=== PATIENT | male | born 1990 | race Caucasian/White ===

== ENCOUNTER 2020-05-06 17:02 | Emergency (ER) | payer MEDICARE, MEDICAID, SELFPAY ==
[2020-05-06 17:11] VITALS: BP 96/70; PULSE 95; RESP 18; TEMP 36.7; O2SAT 99; BMI 21.9
--- NOTE | 2020-05-06 18:03 | XR_ITS ---
EXAMINATION: XR chest 2V CLINICAL INFORMATION: Reason for Exam left chest pain s/p trauma COMPARISON: 2018 TECHNIQUE: XR chest 2V Lungs and Evelyn: Both lungs are clear. Pleura: Normal. Costophrenic angles are sharp. No pneumothorax. Heart: The heart is normal in size. Mediastinum: The mediastinum is within normal limits.. Bones: Skeletal structures included are normal for patient's age. XR/XR chest 2V IMPRESSION: Normal chest x-ray
--- NOTE | 2020-05-06 18:03 | ECG_ITS ---
Test Reason : CHEST PAIN Blood Pressure : / mmHG Vent. Rate : 086 BPM Atrial Rate : 086 BPM P-R Int : 128 ms QRS Dur : 084 ms QT Int : 360 ms P-R-T Axes : 048 085 071 degrees QTc Int : 430 ms Normal sinus rhythm with sinus arrhythmia Normal ECG No previous ECGs available Referred By: Christin Hunter Electronically Signed By:PAYTON MOCTEZUMA MD
--- NOTE | 2020-05-06 18:04 | ED_ITS ---
HPI - Chest Pain General Chief Complaint: Chest Pain Stated Complaint: chest pain Time Seen by Provider: 05/06/20 18:02 Source: patient Mode of arrival: ambulatory Limitations: no limitations History of Present Illness HPI narrative: 29-year-old male with no significant past medical history presents with 1 week of left-sided chest pain after injury. He hit himself into a metal object and since the injury has had left-sided chest pain and pain on inspiration to the left side. He does not describe any loss of consciousness, chest pressure, palpitations, shortness of breath, abdominal pain, dull distention, dysuria, hematuria, vomiting, diarrhea, constipation, edema, fevers and chills. MD complaint: chest pain Onset (ago): week(s) ( One week) Timing of current episode: constant Prior episodes: No Onset: during exertion Pain location: left chest Pain radiation: none Severity: moderate Pain scale (0-10): 7 Quality: sharp Relieving factors: nothing Exacerbating factors: exertion, inspiration, palpation and movement Context: trauma/injury Treatment prior to arrival: other ( NSAIDs) Risk Factors Coronary artery disease risk factors: none Thoracic aortic dissection risk factors: none Related Data Allergies Allergy/AdvReac Type Severity Reaction Status Date / Time No Known Allergies Allergy Verified 05/06/20 17:10 [No Known Allergies*] Review of Systems Review of Systems: Constitutional: No Weight loss, No Fever, No Chills, No Night Sweats, No Fatigue, No Malaise ENT/Mouth: No Hearing loss, No Ear Pain, No Nasal Congestion, No Sinus Pain, No Hoarseness, No sore throat, No Rhinorrhea, No Swallowing Difficulty Eyes: No Eye Pain, No Swelling, No Redness, No Foreign Body, No Discharge, No Vision Changes Cardiovascular: pos Chest Pain, no SOB, no Dyspnea on Exertion, No Orthopnea, No Edema, No Palpitations Respiratory: No Cough, No Sputum, No Wheezing, No Smoke Exposure, No Dyspnea Gastrointestinal: no Nausea, No Vomiting, No Diarrhea, No abdominal Pain, No Hematochezia, No Melena Genitourinary: No irregular bleeding, No Dysuria, No Urinary Frequency, No Hematuria, No Urinary Incontinence, No Urgency, No Flank Pain, No Urinary Flow Changes, No Hesitancy Musculoskeletal: No joint pain, No Myalgias, No Joint Swelling Skin: No Skin Lesions, No rash Neuro: No Weakness, No Numbness, No Paresthesias, No Loss of Consciousness, No Dizziness, No Headache Psych: No Anxiety/Panic, No Depression, No SI/HI/AH/VH Heme/Lymph: No Bruising, No Bleeding,No Lymphadenopathy Endocrine: No Polyuria, No Polydipsia, No Temperature Intolerance Yes all other systems are reviewed and are negative [facility] Past Medical History Attestation statement: The following information was validated with the patient. Medical History Anxiety PTSD (post-traumatic stress disorder) Social History Social History Advance Directives: No Advance Directives Information Provided: Yes Physical Exam Vital Signs: Vital Signs: Last Vital Signs Temp 98.0 F 05/06/20 17:11 Pulse 95 05/06/20 17:11 Resp 18 05/06/20 17:11 BP 96/70 05/06/20 17:11 Pulse Ox 99 05/06/20 17:11 Body Mass Index 21.9 Appearance: Alert. Oriented X3. No acute distress. Eyes: Pupils equal, round and reactive to light. ENT: Pharynx normal. Neck: Normal inspection. Neck supple. CVS: Normal heart rate and rhythm. Pulses normal. Respiratory: No respiratory distress. chest tenderness to palpation on left side, pain to left side on sternal pressure, lung sounds clear to auscultation all lobes. Abdomen: Soft and nontender. Skin: Skin warm and dry. Normal skin color. Normal skin turgor. Extremities: No lower extremity edema. Neuro: No motor deficit. No sensory deficit. Course Course Course Narrative: 29-year-old male with significant past medical history presents with left-sided chest pain after trauma. Plan of care is to rule out fracture, ACS And infection. EKG is normal sinus, troponins are negative, labs are unremarkable, chest x-ray is normal. This injury is highly suspicious for rib fracture or contusion Highly unlikely to be ACS, findings described to patient, patient verbalized understanding of and agrees to plan of care discharge home. MDM - Chest Pain Differential Diagnosis Differential diagnosis: Likely fracture of rib, pneumothorax, stable angina, unstable angina pectoris, atypical chest pain, st elevation myocardial infarction, costochondritis and chest pain Medical Records Data Attestation: I reviewed the patient's medical records. Lab Data Attestation: I reviewed the patient's lab results. Result diagrams: 05/06/20 18:28 05/06/20 18: Labs: Lab Results 05/06/20 05/06/20 05/06/20 Range/Units 18: 18: 18:28 WBC 10.0 (4.8-10.8) X10*3/uL RBC 4.66 (4.60-5.80) X10*6/uL Hgb 13.5 L (14.0-18.0) g/dl Hct 39.7 L (42-52) % MCV 85.2 (80-98) fL MCH 29.0 (27.0-33.0) pg MCHC 34.0 (31.0-36.0) g/dl RDW 13.4 (11.0-16.0) % Plt Count 246 (160-400) X10*3/uL MPV 9.3 L (9.4-12.4) fL Immature Gran % (Auto) 0.3 (0.0-0.4) % Neut % (Auto) 58.4 (45-73) % Lymph % (Auto) 30.9 (20-40) % [place] % (Auto) 7.7 (2-11) % Eos % (Auto) 2.0 (0-4) % Baso % (Auto) 0.7 (0-2) % Lymph # (Auto) 3.1 (1.2-4.9) X10*3/uL [place] # (Auto) 0.8 (0.1-1.2) X10*3/uL Eos # (Auto) 0.2 (0.0-0.4) X10*3/uL Baso # (Auto) 0.1 (0.0-0.2) X10*3/uL Abs Immat Gran (auto) 0.03 (0.00-0.03) X10*3/uL Absolute Neuts (auto) 5.8 (2.0-8.3) X10*3/uL Absolute Nucleated RBC 0.000 (0.0-0.012) X10*3/uL Nucleated RBC % (auto) 0.0 (0.0-0.2) /100WBC Sodium 142 (135-145) mmol/L Potassium 3.8 (3.3-5.1) mmol/l Chloride 106 (96-108) mmol/L Carbon Dioxide 27 (22-29) mmol/L Anion Gap 13 (12-20) BUN 15 (9-16) mg/dL Creatinine 0.83 (0.5-1.4) mg/dL Estim Creat Clear Calc 115.8 Estimated GFR > 60 Random Glucose 86 (60-115) mg/dL Calcium 8.9 (8.4-10.2) mg/dL Troponin I High Sens < 3.5 (<3.5-35.0) ng/L Imaging Data Chest x-ray: Attestation: I personally reviewed and interpreted this imaging study as follows: Radiologist's impression: EXAMINATION: XR chest 2V CLINICAL INFORMATION: Reason for Exam left chest pain s/p trauma COMPARISON: 2017 TECHNIQUE: XR chest 2V Lungs and Evelyn: Both lungs are clear. Pleura: Normal. Costophrenic angles are sharp. No pneumothorax. Heart: The heart is normal in size. Mediastinum: The mediastinum is within normal limits.. Bones: Skeletal structures included are normal for patient's age. XR/XR chest 2V IMPRESSION: Normal chest x-ray ECG Data ECG #1: Attestation: I personally reviewed and interpreted this ECG as follows: ECG interpretation date: 05/06/20 ECG interpretation time: 18:15 Prior ECG tracings: not available for review Interpretation: ventricular rate 86 beats per minute, p.r. interval 128, QT 360, QTC 430, normal sinus rhythm with sinus arrhythmia, normal EKG, no indication of ST elevation or depression. Prior EKGs unavailable secondary to s ystem failure. Scores Heart Score History: -0- slightly suspicious ECG: -0- normal Age: -0- < or = 45 Risk factory: -0- no risk factors known Troponin: -0- < or = normal limit Score: 0 Risk: 1.7% Discharge Plan Discharge Clinical Impression: Atypical chest pain Fracture of rib Qualifiers: Encounter type: initial encounter Rib fracture type: single rib Fracture type: closed Laterality: left Qualified Code(s): S22.32XA - Fracture of one rib, left side, initial encounter for closed fracture Contusion of rib on left side Qualifiers: Encounter type: initial encounter Qualified Code(s): S20.212A - Contusion of left front wall of thorax, initial encounter Patient Disposition: Home, Self-Care Instructions: Rib Fracture (ED), Rib Contusion (ED) Additional Instructions: you were evaluated for left-sided chest pain after an injury. While the chest x-ray is negative for acute findings, it is highly suspicious that you have a rib fracture. Rib fractures are very difficult to see with x-rays and CT scan. Please continue to take naproxen and Tylenol. EKG was normal sinus rhythm, your cardiac enzymes were negative, lab values were negative for acute findings. Follow-up with primary care provider this week. Interventions: ED Discharge Assessment Last Done: 05/06/20 20:12 Discharge Date/Time: 05/06/20 20:13
[2020-05-06 18:35] LABS: MANUAL DIFF FLAG NO
[2020-05-06 18:37] LABS: Basophils Absolute Auto 0.1 X10*3/uL (0.0-0.2); Basophils Percent Auto 0.7 % (0-2); Eosinophils Absolute Auto 0.2 X10*3/uL (0.0-0.4); Hematocrit 39.7 % (42-52); Hemoglobin 13.5 g/dl (14.0-18.0); Imm Gran Abs Auto 0.03 X10*3/uL (0.00-0.03); Imm Gran Pct Auto 0.3 % (0.0-0.4); Lymphocytes Absolute Auto 3.1 X10*3/uL (1.2-4.9); Lymphocytes Percent Auto 30.9 % (20-40); Mean Corpuscular Volume 85.2 fL (80-98); Mean Platelet Volume 9.3 fL (9.4-12.4); Monocytes Absolute Auto 0.8 X10*3/uL (0.1-1.2); Monocytes Percent Auto 7.7 % (2-11); Neutrophils Absolute Auto 5.8 X10*3/uL (2.0-8.3); Neutrophils Percent Auto 58.4 % (45-73); Platelet Count 246 X10*3/uL (160-400); Red Blood Count 4.66 X10*6/uL (4.60-5.80); Red Cell Distribution Width 13.4 % (11.0-16.0)
[2020-05-06 19:06] LABS: Anion Gap 13 (12-20); Blood Urea Nitrogen 15 mg/dL (9-16); Calcium 8.9 mg/dL (8.4-10.2); Carbon Dioxide 27 mmol/L (22-29); Chloride 106 mmol/L (96-108); Creatinine Clr Calc Pharmacy 115.8; Estimated Glomerular Filt Rate > 60; Glucose Random 86 mg/dL (60-115); Potassium 3.8 mmol/l (3.3-5.1); Sodium 142 mmol/L (135-145)
[2020-05-06 19:13] LABS: Troponin-I High Sensitivity < 3.5 ng/L (<3.5-35.0)
== END 2020-05-06 20:13 | disposition home or self-care (01) ==
PROVIDERS: Nurse Practitioner Family; Emergency Provider Emergency Medicine; PCP Internal Medicine
DX: S22.32XA Fracture of one rib, left side, initial encounter for closed fracture (principal); S20.212A Contusion of left front wall of thorax, initial encounter; R07.89 Other chest pain; Y29.XXXA Contact with blunt object, undetermined intent, initial encounter; Y93.9 Activity, unspecified; Y92.9 Unspecified place or not applicable; Y99.9 Unspecified external cause status
CPT/HCPCS: 36415; 71046; 80048; 84484; 85025; 93005; 99283

== ENCOUNTER 2020-09-18 11:54 | Outpatient (REF) | payer OTHER, SELFPAY ==
[2020-09-18 14:15] LABS: Estimated Average Glucose 105 mg/dL; Hemoglobin A1c % 5.3 %
[2020-09-18 14:46] LABS: Cholesterol 180 mg/dL; HDL Cholesterol 42 mg/dL; LDL Cholesterol Calculated 120 mg/dl; Triglycerides 90 mg/dL
== END 2020-09-18 11:55 | disposition home or self-care (01) ==
LOC: HO.10HDL 11:54
PROVIDERS: Visit Provider Psychiatry & Neurology Psychiatry
DX: Z79.899 Other long term (current) drug therapy (principal)
CPT/HCPCS: 36415; 80061; 83036

== ENCOUNTER 2021-06-01 17:10 | Emergency (ER) | payer OTHER, SELFPAY ==
[2021-06-01 17:12] VITALS: BP 117/78; PULSE 106; RESP 16; TEMP 36.8; O2SAT 98; BMI 21.9
--- NOTE | 2021-06-01 17:33 | ED.SKABFB ---
HPI - Skin/Abscess/Foreign Bdy General Chief complaint: Skin/Abscess/Foreign Body Stated complaint: lump on side of neck Time Seen by Provider: 06/01/21 17:19 Source: patient Mode of arrival: ambulatory Limitations: no limitations History of Present Illness HPI narrative: 31-year-old male here with lump to the right side the neck noticed today. No fevers, chills, sore throat, dental pain, ear pain, recent illnesses. No weight loss, night sweats Related Data Previous Rx's Medication Instructions Recorded amoxicillin 500 mg tablet 500 mg PO BID #14 tab 06/01/21 Allergies Allergy/AdvReac Type Severity Reaction Status Date / Time No Known Allergies Allergy Verified 05/06/20 17:10 [No Known Allergies*] Review of Systems Review of Systems: Yes all other systems are reviewed and are negative Constitutional: Constitutional: Reports no additional constitutional complaints, Denies body ache(s), Denies chills, Denies fever(s), Denies headache(s) and Denies weakness Eyes: Eyes: Reports no additional eye complaints and Denies change in vision ENT: Reports system reviewed and no additional complaints, except as documented, Denies dizziness, Denies headache(s), Denies nasal congestion, Denies nasal discharge and Denies neck pain Cardiovascular: Cardiovascular: Reports no additional cardiovascular complaints, Denies chest pain, Denies leg edema and Denies dyspnea Respiratory: Respiratory: Reports no additional respiratory complaints, Denies cough and Denies dyspnea Gastrointestinal: Gastrointestinal: Reports no additional gastrointestinal complaints, Denies abdominal pain, Denies diarrhea, Denies nausea and Denies vomiting Genitourinary: Genitourinary: Denies urinary incontinence Musculoskeletal: Musculoskeletal: Reports no additional musculoskeletal complaints, Denies back pain, Denies arthralgias, Denies joint swelling, Denies neck pain, Denies numbness and Denies tingling Integumentary/Breasts: Skin/Breast: Reports system reviewed and no additional complaints, except as docu, Reports swelling and Denies rash Neurologic: Reports system reviewed and no additional complaints, except as documented, Denies Abnormal speech present, Denies dizziness, Denies headache(s), Denies numbness, Denies tingling and Denies weakness PMF Past Medical History Attestation statement: The following information was validated with the patient. Source: old records reviewed and nursing notes reviewed Medical History Anxiety PTSD (post-traumatic stress disorder) Social History Social History Advance Directives: No Advance Directives Information Provided: Yes Physical Exam Vital Signs: Vital Signs: Last Vital Signs Temp 98.2 F 06/01/21 17:12 Pulse 106 H 06/01/21 17:12 Resp 16 06/01/21 17:12 BP 117/78 06/01/21 17:12 Pulse Ox 98 06/01/21 17:12 BMI result Body Mass Index 21.9 Const: General: cooperative, healthy appearing, comfortable and no acute distress Orientation/consciousness: patient oriented x3 Limitations: no limitations HENMT: Head: Yes normal to inspection Ears: hearing grossly normal bilaterally and TM's normal bilaterally General nose exam: Normal external nose present Face and sinus: Yes normal facial exam Mouth: Normal oral and palatal mucosa present Throat: Yes posterior oropharynx normal, Yes tonsils normal and Yes uvula midline Eyes: General: appearance normal, both eyes and all related structures Pupils: Equal, round and reactive pupils present Neck: Other: To the right side of the neck there is a single lymph node medium size that is tender and mobile to the anterior cervical Neck: Yes normal visual inspection, Yes full ROM and Yes no meningeal signs Chest: Chest palpation & inspection: normal inspection of the chest Resp: Effort & Inspection: normal respiratory effort Auscultation: clear to auscultation bilaterally Cardio: Rate: regular rate Rhythm: regular rhythm Peripheral pulses: Peripheral pulses 2+ throughout GI: Inspection: Yes normal to inspection Palpation (GI): Soft to palpation and nontender Auscultation: normal bowel sounds Back/Spine/Pelvis: Thoracic/Lumbar Spine: thoracic and lumbar spine normal to inspection Skin: General skin exam: no rashes or lesions noted Neuro: General: patient oriented x3, no meningeal signs, no focal motor deficits and normal sensation to monofilament Cranial nerves: Yes Equal, round and reactive pupils present Cognition (Neuro): normal cognition Speech: No Abnormal speech present Gait exam (Neuro): Normal gait present Motor exam (neuro): 5/5 motor strength present throughout Extrem: General: Yes normal to inspection Course Course Course Narrative: 31-year-old male here with right anterior cervical lymphadenopathy from an unknown cause. Exam is benign. Vitals are stable. Will treat with course of antibiotics. Recommend patient follow-up with his primary care doctor in 1 week for persistent symptoms as he may need a lymph node biopsy. Reviewed worrisome signs and symptoms of when to return to the emergency department. Comfortable discharge home. MDM - Skin/Abscess/Foreign Bdy Medical Records Attestation: I reviewed the patient's medical records. Lab Data Attestation: I reviewed the patient's lab results. Discharge Plan Discharge Clinical Impression: Lymphadenopathy of right cervical region Patient Disposition: Home, Self-Care Instructions: Lymphadenopathy (ED) Additional Instructions: Antibiotics for 7 days. If no improvement after that then see the PCP for an evaluation. If continues you may need a biopsy. Prescriptions: New amoxicillin 500 mg tablet 500 mg PO BID Qty: 14 RF: 0 Referrals: Tanya Mora MD [Primary Care Provider] - 2 days
== END 2021-06-01 18:22 | disposition home or self-care (01) ==
LOC: HO.ED 17:47
PROVIDERS: Emergency Provider Emergency Medicine; PCP Internal Medicine
DX: R59.1 Generalized enlarged lymph nodes (principal)
CPT/HCPCS: 99283

== ENCOUNTER 2021-09-11 13:42 | Outpatient (REF) | payer OTHER, SELFPAY ==
[2021-09-11 15:09] LABS: Estimated Average Glucose 108 mg/dL; Hemoglobin A1c % 5.4 %
[2021-09-11 15:19] LABS: Cholesterol 183 mg/dL; HDL Cholesterol 40 mg/dL; LDL Cholesterol Calculated 131 mg/dl; Triglycerides 62 mg/dL
== END 2021-09-11 13:43 | disposition home or self-care (01) ==
LOC: HO.LAB 13:42
PROVIDERS: PCP Internal Medicine; Visit Provider Psychiatry & Neurology Psychiatry
DX: Z79.899 Other long term (current) drug therapy (principal)
CPT/HCPCS: 36415; 80061; 83036

== ENCOUNTER 2022-01-15 11:14 | Outpatient (REF) | payer OTHER, SELFPAY ==
[2022-01-15 13:17] LABS: Hematocrit 42.4 % (42.0-52.0); Hemoglobin 14.1 g/dl (14.0-18.0); Mean Corpuscular HGB Conc 33.3 g/dl (31.0-36.0); Mean Corpuscular Hemoglobin 28.4 pg (27.0-33.0); Mean Corpuscular Volume 85.5 fL (80.0-98.0); Mean Platelet Volume 9.9 fL (9.4-12.4); Platelet Count 273 X10*3/uL (160-400); Red Blood Count 4.96 X10*6/uL (4.60-5.80); Red Cell Distribution Width 13.8 % (11.0-16.0); White Blood Count 8.4 X10*3/uL (4.8-10.8)
[2022-01-15 13:31] LABS: Alanine Aminotransferase 16 U/L (0-40); Albumin Level 4.5 g/dL (3.5-5.0); Alkaline Phosphatase 63 U/L (39-117); Anion Gap 16 (12-20); Aspartate Amino Transferase 25 U/L (5-37); Bilirubin Total 0.4 mg/dL (0.0-1.0); Blood Urea Nitrogen 16 mg/dL (9-16); Calcium 9.2 mg/dL (8.4-10.2); Carbon Dioxide 27 mmol/L (22-29); Chloride 101 mmol/L (96-108); Estimated Glomerular Filt Rate > 60; Glucose Fasting 91 mg/dL (60-99); Potassium 3.9 mmol/L (3.3-5.1); Sodium 140 mmol/L (135-145); Total Protein 7.1 g/dL (6.5-8.0)
[2022-01-15 13:51] LABS: TSH reflex Free T4 1.35 uIU/mL (0.32-4.0)
== END 2022-01-15 11:15 | disposition home or self-care (01) ==
LOC: HO.WFDLDS 11:14
PROVIDERS: Visit Provider Hospitalist
DX: Z00.00 Encounter for general adult medical examination without abnormal findings (principal)
CPT/HCPCS: 36415; 80053; 84443; 85027

== ENCOUNTER 2023-08-12 12:08 | Outpatient (AMB) | payer OTHER, SELFPAY ==
--- NOTE | 2023-08-12 12:22 | MHC.PC.OV ---
Vital Signs 08/12/23 12:23 Height 5 ft 9 in Weight 189 lb BMI 27.9 BP 106/65 Blood Pressure Location Rt brachial Position Sitting Respiration 14 Pulse 75 Pulse Source Pulse Oximeter Temp 97.0 F Pulse Oximetry (%) 97 Oxygen Delivery Method Room Air Intake Visit Reasons: TC SV/Annual PE Intake Note: Patient is here today for a physical. Patient reports he does not have any concerns at this time. Senior Quality Methods Specialist Required: No Accompanied by: Self / Same As Patient Allergies No Known Allergies [No Known Allergies*] Allergy (Verified 08/12/23 12:42) Medication List - Last Reconciled 08/12/23 by JOSESITO Valenzuela-MARLYN quetiapine (Seroquel) 50 mg PO BEDTIME Tobacco use date assessed: 08/12/23 Dental Screening Dental Screen Date: 08/12/23 Did you have a dental visit in the last 12 months?: Yes Did you have a dental problem in the last 6 months where you did not have access to dental care?: No Was dental information given to patient?: Patient has dentist HPI HPI Comments History of Present Illness Details 33-year-old male with PTSD, anxiety, delusional disorder, tobacco use disorder s/p skin graft to nose, non cancerous reasons Specialists: Psychiatry and Counseling Health maintenance Labs 2021 within normal limits Routine eye and dental care No skin concerns Reports up-to-date on vaccinations Advanced care planning - does have a healthcare proxy with him today. He does not have 1. Blank form given to him encouraged to return Here today to est care and for CPE Reports one time when he went to urinate and felt like it was stuck. Denies concern for STD. This has never happened before. [facility], [facility] Medical History (Updated 08/12/23 @ 13:00 by JOSESITO Valenzuela-MARLYN) Anxiety PTSD (post-traumatic stress disorder) Surgical History No pertinent past surgical history Social History Household Members: Family Household Members Other:: Mother and Brother Housing: Apartment Alcohol intake: current Alcohol intake frequency: holidays/special occasions only Patient Tobacco Use Status: Current everyday Tobacco user Tobacco use type: Cigarette Cigarettes Per Day: 8 Years Smoked: 14 e-Cigarette/Vaping Use: Never Used Second Hand Smoke Exposure: Yes service: Yes ([employer]) Current occupational status: unemployed Current occupational exposures/hazards: No Sexual orientation: Straight/Heterosexual Gender identity: Male Cognitive needs: No Hearing needs: No Vision needs: Yes Questionnaire PHQ-9 Over the last 2 weeks, how often have you been bothered by any of the following problems? 1. Little interest or pleasure in doing things: not at all 2. Feeling down, depressed, or hopeless: not at all 3. Trouble falling or staying asleep, or sleeping too much: not at all 4. Feeling tired or having little energy: not at all 5. Poor appetite or overeating: not at all 6. Feeling bad about yourself - or that you are a failure or have let yourself or your family down: not at all 7. Trouble concentrating on things, such as reading the newspaper or watching television: not at all 8. Moving or speaking so slowly that other people could have noticed. Or the opposite - being so fidgety or restless that you have been moving around a lot more than usual: not at all 9. Thoughts that you would be better off or of hurting yourself in some way: not at all Total score: 0 Depression Screening Interpretation: Negative Depression Screening Done: Yes 18635 - PHQ-9 Billing: Yes Source: Developed by Drs. Andrea Ford, Aylin No, Parag Cornejo and colleagues, with an educational jordy from [employer]. Thrive Questionnaire Date Thrive assessed: 08/12/23 I am a: Patient What is your living situation today?: I have a steady place to live Within the past 12 months, did the food you bought not last and you didn't have the money to get more?: Never true Within the past 12 months, did you worry whether your food would run out before you got money to buy more?: Never true Do you have trouble paying for medicines?: No Do you have trouble getting transportation to medical appointments?: No Do you have trouble paying your heating and electricity bill?: No Do you have trouble taking care of your child, family member or friend?: No Do you have trouble with day-to-day activities such as bathing, preparing meals, shopping, managing finances, etc.?: No Are you currently unemployed and looking for a job?: No Are you interested in more education?: No Please select the resources that you would like help with: None Currently or been in a relationship where the following occur: no concerns reported THRIVE Score: 0 AUDIT C Alcohol Use Questionnaire (AUDIT-C) 1. How often do you have a drink containing alcohol?: Never 3. How often do you have six or more drinks on one occasion?: Never Total Score: 0 Score Reviewed/Action Taken: Yes KIRA-7 AMB Questionnaire KIRA-7 Date KIRA - 7 assessed: 08/12/23 Feeling nervous, anxious, or on edge: 0 = Not at all Not being able to stop or control worryin = Not at all Worrying too much about different things: 0 = Not at all Trouble relaxin = Not at all Being so restless that it is hard to sit still: 0 = Not at all Becoming easily annoyed or irritable: 0 = Not at all Feeling afraid as if something awful might happen: 0 = Not at all Total KIRA-7 score (0-4 normal; 5-9 mild; 10-14 moderate; 15-21 severe): 0 Source: Developed by Drs. Andrea Ford, Aylin No, Parag Cornejo and colleagues, with an educational jordy from [employer]. KIRA-7 Assessment Billing KIRA-7 Assessment Tool: KIRA-7 Assessment 18483 Review of Systems Const Details: Constitutional: Denies fever. Skin: Denies rash. Eye: Denies eye pain. ENMT: Denies sore throat and nasal congestion. Respiratory: Denies shortness of breath and cough. Gastrointestinal: Denies nausea, vomiting or abdominal pain. Cardiovascular: Denies chest pain and syncope. Genitourinary: Denies dysuria. Musculoskeletal: Denies back pain and extremity pain. Neurologic: Denies headaches, confusion, and weakness. Psychiatric: Denies suicidal thoughts and substance abuse. Allergy/ Immunologic: Denies impaired immunity. Physical exam (Primary Care) Vital Signs: Last Vital Signs Temp 97.0 F 08/12/23 12:23 Pulse 75 08/12/23 12:23 Resp 14 08/12/23 12:23 BP 106/65 08/12/23 12:23 Pulse Ox 97 08/12/23 12:23 Oxygen Delivery Method Room Air 08/12/23 12:23 BMI result Body Mass Index 27.9 Tobacco/Smoking Status: Tobacco use Status Tobacco use date assessed 08/12/23 08/12/23 12:28 Patient Tobacco Use Status Current everyday Tobacco 08/12/23 12:28 Tobacco use type Cigarette 08/12/23 12:28 e-Cigarette/Vaping Use Never Used 08/12/23 12:28 Are you ready to quit: No Tobacco cessation counseling provided: Yes Items discussed: Other Relapse Prevention: discussed the importance of a supportive environment, discussed extending NRT, discussed negative mood or depression after quitting, weight gain after smoking is common and discussed dietary, exercise and/or lifestyle changes Number of minutes spent counselin CPT code: 72180 - 4-10 Minutes PHQ-9: PHQ-9 Score PHQ-9: Total score 0 08/12/23 12:29 Depression Screening Interpretation: Negative Thrive Assessment: Date of Thrive Assessment Date Thrive assessed 08/12/23 08/12/23 12:29 Currently or been in a relationship where the following occur: no concerns reported Advance Care Planning discussion: Declined forms (blank form provided w/ education) Date of discussion: 08/12/23 Who was present: self Forms completed: None Time spent: 1-15 minutes, not on file Actual minutes spent: 4 Did not discuss due to Cultural/Spiritual beliefs: Yes Const Other: General: Well developed, well nourished, in no acute distress. Appears stated age. Head: Normocephalic, atraumatic. Eyes: Pupils are equal, round and reactive to light and accommodation. Conjunctivae are clear. Vision grossly normal. Ears: TMs clear AU, EACS WNL Nose: Patent, without discharge. Mouth: There are no ulcers or lesions noted. No inflammation, no post nasal drip, no plaques nor exudates. Neck: Supple, no adenopathy or thyromegaly. Lungs: Clear to auscultation bilaterally. No rales, rhonchi or wheeze noted. Good air flow in all ewlsh. Heart: Regular rate and rhythm. No murmurs, click, rubs or gallops are noted. Abdomen: Bowel sounds present in all quadrants. The abdomen is soft, nontender, with no masses or organomegaly noted. No hernias are noted. Musculoskeletal: Joints are nontender, without swelling, redness, or effusions. Range of motion is observed to be normal. Pulses: Peripheral pulses are equal and palpable bilaterally. Extremities: No clubbing, cyanosis nor edema is noted. Lipoma left lower quadrant Neurologic: Gait and station normal. Cranial Nerves 2-12 intact. Motor strength grossly symmetrical and intact. No sensory loss. Balance normal. Skin: No rashes, ulcers, or lesions noted. Turgor is good. Skin color is good. Hair and nails are without abnormalities. Psych: Normal eye contact, affect and mood appropriate, and normal interactions. Patient is alert and appropriate to context. Quiet and soft spoken Assessment and Plan Assessment & Plan (1) Normal physical exam: Code(s): Z00.00 - Encounter for general adult medical examination without abnormal findings (2) PTSD (post-traumatic stress disorder): Comment: Managed by out side prescriber and counselor currently maintained on Seroquel Code(s): F43.10 - Post-traumatic stress disorder, unspecified (3) Laboratory exam ordered as part of routine general medical examination: Code(s): Z00.00 - Encounter for general adult medical examination without abnormal findings (4) Tobacco use: Comment: Education provided Code(s): Z72.0 - Tobacco use (5) KIRA (generalized anxiety disorder): Comment: Managed by out side prescriber and counselor currently maintained on Seroquel Code(s): F41.1 - Generalized anxiety disorder (6) Delusional disorder: Comment: Managed by out side prescriber and counselor currently maintained on Seroquel Code(s): F22 - Delusional disorders (7) Lipoma of abdominal wall: Comment: Left lower quadrant present for 2 years offered and declined referral to General surgery. Advised to keep an eye on this and if it becomes painful or grows larger consider consult at that time Code(s): D17.1 - Benign lipomatous neoplasm of skin and subcutaneous tissue of trunk (8) Advanced care planning/counseling discussion: Comment: Performed today. Patient does not have a healthcare proxy. Education provided about this form. Blank form given to him along with instructions. Encouraged him to return this form Code(s): Z71.89 - Other specified counseling Orders: Orders Comprehensive Met. Panel Today Z00.00 - Encounter for general adult medical examination without abnormal findings Microalbumin, Random (w Creat) Today Z00.00 - Encounter for general adult medical examination without abnormal findings LDL Cholesterol Direct Today Z00.00 - Encounter for general adult medical examination without abnormal findings TSH reflex Free T4 Today Z00.00 - Encounter for general adult medical examination without abnormal findings UA CC w/rflx Micro + Cult Today Z00.00 - Encounter for general adult medical examination without abnormal findings Patient Instructions: Smoking Cessation How to Quit There are a lot of ways to quit smoking and many resources to help you. Family members, friends, and co-workers may be supportive or encouraging, but to be successful the desire and commitment to quit must be your own. Most people who have been able to successfully quit smoking made at least one unsuccessful attempt in the past. Try not to view past attempts to quit as failures, but rather as learning experiences. Stopping smoking or using smokeless tobacco is difficult, but anyone can do it. Know the symptoms to expect when you stop. Common symptoms include: ? An intense craving for nicotine ? Anxiety, tension, restlessness, frustration, or impatience ? Difficulty concentrating ? Drowsiness or trouble sleeping, as well as bad dreams and nightmares ? Drowsiness and trouble sleeping ? Headaches ? Increased appetite and weight gain ? Irritability or depression How severe your symptoms are depends on how long you smoked and how many cigarettes you smoked each day. Feel ready to quit? ? First and foremost, set a quit date and quit completely on that day. Before your quit date, you may begin reducing your cigarette use. But remember, there is no safe level of cigarette smoking. ? List the reasons why you want to quit. Include both short- and long-term benefits. ? Identify the times you are most likely to smoke. For example, do you tend to smoke when feeling stressed or down? When out at night with friends? While drinking coffee or alcohol? When bored? While driving? Right after a meal or sex? During a work break? While watching TV or playing cards? When you are with other smokers? ? Let all of your friends, family, and co-workers know of your plan to stop smoking and your quit date. Just being aware that they know what you're going through can be helpful, especially when you are grumpy. ? Get rid of all your cigarettes just before the quit date, and clean out anything that smells like smoke, such as clothes and furniture. Make a plan about what you will do instead of smoking at those times when you are most likely to smoke. ? Be as specific as possible. For example, drink tea instead of coffee -- tea may not trigger the desire for a cigarette. Or, take a walk when you feel stressed. ? Remove ashtrays and cigarettes from the car. Place pretzels or hard candies there instead. Pretend-smoke with a straw. ? Find activities that focus your hands and mind but are not taxing or fattening. Computer games, solitaire, knitting, sewing, and crossword puzzles may help. ? If you normally smoke after eating, find other ways to end a meal. Play a tape or CD, eat a piece of fruit, get up and make a phone call, or take a walk (a good distraction that also nguyen calories). Make other changes in your lifestyle. ? Change your daily schedule and habits. Eat at different times or eat several small meals instead of three large ones. Sit in a different chair or even a different room. ? Satisfy your oral habits by eating celery or other low-calorie snack, chewing sugarless gum, or sucking on a cinnamon stick. ? Go to public places and restaurants where smoking is prohibited or restricted. ? Eat regular meals and don't eat too much candy or sweet things. ? Get more exercise. Take walks or ride a bike. Exercise helps relieve the urge to smoke. Set short-term quitting goals and reward yourself when you meet them. ? Every day, put the money you normally spend on cigarettes in a jar. Then buy something pleasurable after a period of time. ? Try not to think about all the days ahead you will need to avoid smoking. Take it one day at a time. ? Even one puff or one cigarette will make your desire for more cigarettes even stronger. However, it is normal to make mistakes. So even if you have one cigarette, you don't need to take the next one. Other tips to help you quit smoking and stick to it: ? Enroll in a smoking cessation program (hospitals, health departments, community centers, and work sites often offer programs). Learn about self-hypnosis or other techniques. ? Ask your health care provider about prescription medications that are safe and appropriate for you. ? Find out about nicotine patches, gum, and sprays. The [place] [employer]'s web site -- www.cancer.org -- is an excellent resource for smokers who are trying to quit, and the [employer] [place] [employer] can help some smokers kick the habit. Above all, don't get discouraged if you aren't able to quit smoking the first time. Nicotine addiction is a hard habit to break. Try something different next time. Develop new strategies, and try again. Many people take several attempts to finally kick the habit. Health screenings for men ages 40 to 64 You should visit your health care provider regularly, even if you feel healthy. The purpose of these visits is to: Screen for medical issues Assess your risk for future medical problems Encourage a healthy lifestyle Update vaccinations and other preventive care services Help you get to know your provider in case of an illness Information Even if you feel fine, you should still see your provider for regular checkups. These visits can help you avoid problems in the future. For example, the only way to find out if you have high blood pressure is to have it checked regularly. High blood sugar and high cholesterol level also may not have any symptoms in the early stages. Simple blood tests can check for these conditions. There are specific times when you should see your provider or receive specific health screenings. The [place] Preventive Services Task Force publishes a list of recommended screenings. Below are screening guidelines for men ages 40 to 64. BLOOD PRESSURE SCREENING Have your blood pressure checked at least once every year. Watch for blood pressure screenings in your area. Ask your provider if you can stop in to have your blood pressure checked. Ask your provider if you need your blood pressure checked more often if: You have diabetes, heart disease, kidney problems, or are overweight or have certain other health conditions You have a first-degree relative with high blood pressure You are Black Your blood pressure top number is from 120 to 129 mm Hg, or the bottom number is from 70 to 79 mm Hg If the top number is 130 mm Hg or greater or the bottom number is 80 mm Hg or greater, this is considered stage 1 hypertension. Schedule an appointment with your provider to learn how you can lower your blood pressure. Effects of age on blood pressure CHOLESTEROL SCREENING Cholesterol screening should begin at age 35 for men with no known risk factors for coronary heart disease. Repeat cholesterol screening should take place: Every 5 years for men with normal cholesterol levels More often if changes occur in lifestyle (including weight gain and diet) More often if you have diabetes, heart disease, kidney problems, or certain other conditions COLORECTAL CANCER SCREENING If you are under age 45, talk to your provider about getting screened. You may need to be screened if you have a strong family history of colon cancer or polyps. Screening may also be considered if you have risk factors such as a history of inflammatory bowel disease or polyps. If you are age 45 to 75, you should be screened for colorectal cancer. There are several screening tests available: A stool-based fecal occult blood (gFOBT) or fecal immunochemical test (FIT) every year A stool sDNA test every 1 to 3 years Flexible sigmoidoscopy every 5 years or every 10 years with stool testing FIT done every year CT colonography (virtual colonoscopy) every 5 years Colonoscopy every 10 years You may need a colonoscopy more often if you have risk factors for colorectal cancer, such as: Ulcerative colitis A personal or family history of colorectal cancer A history of growths in your colon called adenomatous polyps DENTAL EXAM Go to the dentist once or twice every year for an exam and cleaning. Your dentist will evaluate if you have a need for more frequent visits. DIABETES SCREENING All adults who do not have risk factors for diabetes should be screened starting at age 35 and repeated every 3 years. If you have other risk factors for diabetes, such as a first degree relative with diabetes, overweight or obesity, high blood pressure, prediabetes, or a history of heart disease, you may be tested more often. If you are overweight and have other risk factors, such as high blood pressure and are planning to become , screening is recommended. EYE EXAM Have an eye exam every 2 to 4 years ages 40 to 54 and every 1 to 3 years ages 55 to 64. Your provider may recommend more frequent eye exams if you have vision problems or glaucoma risk. Have an eye exam that includes an examination of your retina (back of your eye) at least every year if you have diabetes. IMMUNIZATIONS Commonly needed vaccines include: Flu shot: get one every year COVID-19 vaccine: ask your provider what is best for you Tetanus-diphtheria and acellular pertussis (Tdap) vaccine: have as one of your tetanus-diphtheria vaccines if you did not receive it as an adolescent Tetanus-diphtheria: have a booster (or Tdap) every 10 years Varicella vaccine: receive 2 doses if you never had chickenpox or the varicella vaccine and were born in 1980 or after Hepatitis B vaccine: receive 2, 3, or 4 doses, depending on your exact circumstances, if you did not receive these as a child or adolescent, until age 59 Shingles (herpes zoster) vaccine: at or after age 50 Ask your provider if you should receive other immunizations, especially if you have certain medical conditions, such as diabetes or are at increased risk for some diseases such as pneumonia. INFECTIOUS DISEASE SCREENING Screening for hepatitis C: all adults ages 18 to 79 should get a one-time test for hepatitis C. Screening for human immunodeficiency virus (HIV): all people ages 15 to 65 should get a one-time test for HIV. Depending on your lifestyle and medical history, you may need to be screened for infections such as syphilis, chlamydia, and other infections. LUNG CANCER SCREENING You should have an annual screening for lung cancer with low-dose computed tomography (LDCT) if: You are age 50 to 80 years AND You have a 20 pack-year smoking history AND You currently smoke or have quit within the past 15 years OSTEOPOROSIS SCREENING If you are age 50 to 64 and have risk factors for osteoporosis, you should discuss screening with your provider. Risk factors can include long-term steroid use, low body weight, smoking, heavy alcohol use, having a fracture after age 50, or a family history of hip fracture or osteoporosis. Osteoporosis PHYSICAL EXAM All adults should visit their provider from time to time, even if they are healthy. The purpose of these visits is to: Screen for diseases Assess risk of future medical problems Encourage a healthy lifestyle Update vaccinations and other preventive care services Maintain a relationship with a provider in case of an illness Your height, weight, and body mass index (BMI) should be checked at every exam. During your exam, your provider may ask you about: Depression and anxiety Diet and exercise Alcohol and tobacco use Safety, such as use of seat belts and smoke detectors Your medicines and risk for interactions PROSTATE CANCER SCREENING If you're 55 through 69 years old, before having the test, talk to your provider about the pros and cons of having a PSA test. Ask about: Whether screening decreases your chance of dying from prostate cancer. Whether there is any harm from prostate cancer screening, such as side effects from testing or overtreatment of cancer when discovered. Whether you have a higher risk of prostate cancer than others. If you are age 55 or younger, screening is not generally recommended. You should talk with your provider about if you have a higher risk for prostate cancer. Risk factors include: Having a family history of prostate cancer (especially a brother or father) Being If you choose to be tested, the PSA blood test is repeated over time (yearly or less often), though the best frequency is not known. Prostate examinations are no longer routinely done on men with no symptoms. Prostate cancer SKIN EXAM Your provider may check your skin for signs of skin cancer, especially if you're at high risk. People at high risk include those who have had skin cancer before, have close relatives with skin cancer, or have a weakened immune system. TESTICULAR EXAM The [place] Preventive Services Task Force (USPSTF) now recommends against performing testicular self-exams. Doing testicular self-exams has been shown to have little to no benefit. Coding Level of Care Code Est Pt Prev Care 18-39y(30076) Diagnoses Normal physical exam Z00.00 PTSD (post-traumatic stress disorder) F43.10 Laboratory exam ordered as part of routine general medical examination Z00.00 Tobacco use Z72.0 KIRA (generalized anxiety disorder) F41.1 Delusional disorder F22 Lipoma of abdominal wall D17.1 Advanced care planning/counseling discussion Z71.89 Additional Codes KIRA-7 Assessment Billing - KIRA-7 Assessment Tool: KIRA-7 Assessment 27211 ([id number]) Vital Signs *Quality* - Time spent: 1-15 minutes, not on file ([id number]) Vital Signs *Quality* - Did not discuss due to Cultural/Spiritual beliefs: Yes ([id number]) Vital Signs *Quality* - Advance Care Planning discussion: Declined forms ([id number]) Vital Signs *Quality* - CPT code: 13073 - 4-10 Minutes ([id number])
[2023-08-12 12:23] VITALS: BP 106/65; PULSE 75; RESP 14; TEMP 36.1; O2SAT 97; BMI 27.9
== END 2023-08-12 13:03 | disposition home or self-care (01) ==
PROVIDERS: PCP Nurse Practitioner Family; Visit Provider Nurse Practitioner Family
DX: Z00.00 Encounter for general adult medical examination without abnormal findings (principal); F22 Delusional disorders; F43.10 Post-traumatic stress disorder, unspecified; Z72.0 Tobacco use; F41.1 Generalized anxiety disorder; D17.1 Benign lipomatous neoplasm of skin and subcutaneous tissue of trunk; Z71.89 Other specified counseling
CPT/HCPCS: 1124F; 99395

== ENCOUNTER 2023-08-12 12:53 | Outpatient (REF) | payer OTHER, SELFPAY ==
[2023-08-12 14:24] LABS: Appearance Urine Turbid; Color Urine Dark Yellow; Glucose Urine UA Negative (Negative); Leukocyte Esterase Urine Negative (Negative); Nitrite Urine Negative (Negative); PH 5.5 (5.0-9.0); Specific Gravity - Urine >= 1.030 (1.005-1.025); Urine Blood Negative (Negative); Urine Ketones Trace mg/dL (Negative); Urine Protein Trace mg/dL (Neg-Trace)
[2023-08-12 14:59] LABS: Creatinine Urine 453.78 mg/dL; Microalbum/Creatinine Ratio Ur 6.1 ug/mg cr (<30)
[2023-08-12 17:06] LABS: Alanine Aminotransferase 11 U/L (0-40); Albumin Level 4.5 g/dL (3.5-5.0); Alkaline Phosphatase 67 U/L (39-117); Anion Gap 13 (12-20); Aspartate Amino Transferase 17 U/L (5-37); Bilirubin Total 0.5 mg/dL (0.0-1.0); Blood Urea Nitrogen 17 mg/dL (9-16); Calcium 9.5 mg/dL (8.4-10.2); Carbon Dioxide 29 mmol/L (22-29); Chloride 104 mmol/L (96-108); Estimated Glomerular Filt Rate > 60; Glucose Random 93 mg/dL (60-115); Potassium 3.5 mmol/L (3.3-5.1); Sodium 142 mmol/L (135-145); Total Protein 7.6 g/dL (6.5-8.0)
[2023-08-12 17:11] LABS: TSH reflex Free T4 1.08 uIU/mL (0.32-4.0)
[2023-08-14 04:59] LABS: LDL Cholesterol Direct 153 mg/dL (<100)
== END 2023-08-12 12:54 | disposition home or self-care (01) ==
LOC: HO.WFDLDS 12:53
PROVIDERS: Visit Provider Nurse Practitioner Family
DX: Z00.00 Encounter for general adult medical examination without abnormal findings (principal)
CPT/HCPCS: 36415; 80053; 81003; 82043; 82570; 83721; 84443

== ENCOUNTER 2023-12-02 12:03 | Outpatient (REF) | payer OTHER, SELFPAY ==
[2023-12-02 12:40] LABS: Estimated Average Glucose 108 mg/dL; Hemoglobin A1c % 5.4 % (<6.0)
[2023-12-02 12:56] LABS: Cholesterol 194 mg/dL (<200); HDL Cholesterol 38 mg/dL (>40); LDL Cholesterol Calculated 141 mg/dL (<100); Triglycerides 76 mg/dL (<150)
== END 2023-12-02 12:04 | disposition home or self-care (01) ==
LOC: HO.LAB 12:03
PROVIDERS: Visit Provider Psychiatry & Neurology Psychiatry
DX: Z79.899 Other long term (current) drug therapy (principal)
CPT/HCPCS: 36415; 80061; 83036

== ENCOUNTER 2024-08-16 12:56 | Outpatient (AMB) | payer OTHER, SELFPAY ==
--- NOTE | 2024-08-16 12:57 | A.OFFPC_ITS ---
Vital Signs 08/16/24 13:00 Height 5 ft 7 in Weight 139 lb 2 oz BMI 21.8 BP 98/66 Blood Pressure Location Lt brachial Position Sitting Respiration 12 Pulse 74 Pulse Source Pulse Oximeter Temp 96.8 F Temp Source Oral Pulse Oximetry (%) 96 Oxygen Delivery Method Room Air Intake Visit Reasons: CPE Intake Note: annual cpe Review Consultant Required: No Allergies No Known Allergies [No Known Allergies*] Allergy (Verified 08/16/24 13:09) Medication List - Last Reconciled 08/16/24 by JOSESITO Valenzuela- quetiapine (Seroquel) 50 mg PO BEDTIME Tobacco use date assessed: 08/16/24 Dental Screening Dental Screen Date: 08/16/24 Did you have a dental visit in the last 12 months?: Yes Did you have a dental problem in the last 6 months where you did not have access to dental care?: No Was dental information given to patient?: Patient has dentist HPI HPI Comments History of Present Illness Details 34-year-old male with PTSD, anxiety, de lusional disorder, tobacco use disorder s/p skin graft to nose, non cancerous reasons Specialists: Psychiatry and Counseling Health maintenance Routine eye and dental care No skin concerns Reports up-to-date on vaccinations Advanced care planning - The patient is a 34-year-old male pres enting for his annual physical examination. - Reports ongoing tobacco use, approxima tely eight cigarettes per day, with a history of using Chantix and a nicotine patch with limited success in quitting. wants to restart chantix. denies mood issues w this in the past. - mood stable on seroquel managed by out side prescriber and counselor - Has a history of hyperlipidemia; monalisa sterol levels were noted as high in the past. - lipoma in the abdominal wall that is n ot causing any discomfort or changes in size. Health Maintenance - Declined the flu vaccination. - Last labs were taken in November without r eport on cholesterol levels; labs are planned to be updated at this visit. - Discussion on smoking cessation with mary naylor to use Chantix. Review of Systems - Psychiatric: Denies any impact on mood when taking Chantix. - General: Denies any recent surgeries s tenzin last seen. - Respiratory: Denies respiratory compla ints directly over the past year. - Dermatological: Denies discomfort from lipoma or any size progression. previous skin graft to nose for non cancer lesion at plastics, paid de paz. could not afford to cont tx. interested in new referral - Gastrointestinal: Denies any change in health status; episodic abdominal discomfort. Results - Labs: Labs planned to be collected tod ay to monitor cholesterol levels. Discussion Notes I discussed with the patient his ongoing commitment to smoking cessation, emphasizing the importance of quitting to improve his overall health and potentially reduce his hyperlipidemia-associated risks. We explored the options and effectiveness of Chantix given his previous experience, which he found somewhat useful. The patient expressed interest in refocusing efforts on cessation. We discussed updating the patient?s lab work today to reassess cholesterol levels and conversation regarding referral options for a plastic surgeon for his nasal scar if covered by insurance. I encouraged him to engage with the patient portal for quicker access to his lab results and other correspondences. He was also reminded about regular medical follow-ups and preventive care measures. Assessment and Plan 1. Tobacco Use Disorder: The patient is currently smoking about eight cigarettes daily. We discussed reinitiating Chantix for smoking cessation, noting past usage and outcomes with previous therapies. 2. Anxiety Disorder: Tobacco-related anx iety about lung health is noted. We emphasized smoking cessation as a preventive measure for anxiety triggers. 3. Post-Traumatic Stress Disorder (PTSD) : The patient continues to take Seroquel with reported stable mood management. No changes in current therapy required. 4. Hyperlipidemia: Elevated cholesterol levels are noted from past records. We plan to repeat cholesterol lab testing and base future interventions on those updated results. 5. Lipoma of the Abdominal Wall: The lip hazel remains non-problematic, and we plan for ongoing observation unless symptoms develop. Patient Instructions - Begin Chantix as prescribed and try to reduce cigarette smoking. - Follow up with the lab tests as schedu led today to assess your cholesterol levels. - Keep using the patient portal for upda ryan on lab results and communications. - Continue consultations with your psych iatrist and counselors. - Attend routine medical check-ups and p reventive healthcare appointments. RTO 1 year CPE sooner PRN Consent The patient consented to the initiation of Chantix therapy for smoking cessation, having been informed of its efficacy and previous personal experience favorably. The patient was advised that insurance acceptance and potential financial implications could affect the coverage of the plastic surgery referral for nasal scar management. Detailed risks, benefits, and possible lack of insur ance coverage for procedures under cosmetic classification have been discussed thoroughly with the patient, who acknowledged understanding. Consent obtained verbally from the patient for laboratory testing and future therapeutic adjustments. Patient was informed and verbally consented to the use of an ambient scribe for clinic note documentation during this visit. [facility] Medical History (Updated 08/16/24 @ 13:35 by ENEIDA Valenzuela) Anxiety PTSD (post-traumatic stress disorder) Surgical History No pertinent past surgical history Social History Household Members: Family Household Members Other:: Mother and Brother Housing: Apartment Alcohol intake: current Alcohol intake frequency: holidays/special occasions only Patient Tobacco Use Status: Current everyday Tobacco user Tobacco use type: Cigarette Cigarettes Per Day: 8 Years Smoked: 14 e-Cigarette/Vaping Use: Never Used Second Hand Smoke Exposure: Yes service: Yes ([employer]) Current occupational status: unemployed Current occupational exposures/hazards: No Sexual orientation: Straight/Heterosexual Gender identity: Male Cognitive needs: No Hearing needs: No Vision needs: Yes Questionnaire PHQ-9 Over the last 2 weeks, how often have you been bothered by any of the following problems? 1. Little interest or pleasure in doing things: not at all 2. Feeling down, depressed, or hopeless: not at all 3. Trouble falling or staying asleep, or sleeping too much: not at all 4. Feeling tired or having little energy: not at all 5. Poor appetite or overeating: not at all 6. Feeling bad about yourself - or that you are a failure or have let yourself or your family down: not at all 7. Trouble concentrating on things, such as reading the newspaper or watching television: not at all 8. Moving or speaking so slowly that other people could have noticed. Or the opposite - being so fidgety or restless that you have been moving around a lot more than usual: not at all 9. Thoughts that you would be better off or of hurting yourself in some way: not at all Total score: 0 Depression Screening Interpretation: Negative Depression Screening Done: Yes 00679 - PHQ-9 Billing: Yes Source: Developed by Drs. Andrea Ford, Parag Garcia and colleagues, with an educational jordy from [employer]. Thrive Questionnaire Date Thrive assessed: 08/16/24 I am a: Patient What is your living situation today?: I have a steady place to live Within the past 12 months, did the food you bought not last and you didn't have the money to get more?: Never true Within the past 12 months, did you worry whether your food would run out before you got money to buy more?: Never true Do you have trouble paying for medicines?: No Do you have trouble getting transportation to medical appointments?: No Do you have trouble paying your heating and electricity bill?: No Do you have trouble taking care of your child, family member or friend?: No Do you have trouble with day-to-day activities such as bathing, preparing meals, shopping, managing finances, etc.?: No Are you currently unemployed and looking for a job?: No Are you interested in more education?: No Please select the resources that you would like help with: None THRIVE Score: 0 AUDIT C Alcohol Use Questionnaire (AUDIT-C) 1. How often do you have a drink containing alcohol?: Never 3. How often do you have six or more drinks on one occasion?: Never Total Score: 0 Score Reviewed/Action Taken: Yes KIRA-7 AMB Questionnaire KIRA-7 Date KIRA - 7 assessed: 08/16/24 Feeling nervous, anxious, or on edge: 0 = Not at all Not being able to stop or control worryin = Not at all Worrying too much about different things: 0 = Not at all Trouble relaxin = Not at all Being so restless that it is hard to sit still: 0 = Not at all Becoming easily annoyed or irritable: 0 = Not at all Feeling afraid as if something awful might happen: 0 = Not at all Total KIRA-7 score (0-4 normal; 5-9 mild; 10-14 moderate; 15-21 severe): 0 Source: Developed by Aylin See Kurt Kroenke and colleagues, with an educational jordy from [employer]. KIRA-7 Assessment Billing KIRA-7 Assessment Tool: KIRA-7 Assessment 03846 Physical exam (Primary Care) Vital Signs: Last Vital Signs Temp 96.8 F 08/16/24 13:00 Pulse 74 08/16/24 13:00 Resp 12 08/16/24 13:00 BP 98/66 08/16/24 13:00 Pulse Ox 96 08/16/24 13:00 Oxygen Delivery Method Room Air 08/16/24 13:00 BMI result Body Mass Index 21.8 Tobacco/Smoking Status: Tobacco use Status Tobacco use date assessed 08/16/24 08/16/24 13:02 Patient Tobacco Use Status Current everyday Tobacco 08/16/24 12:57 Tobacco use type Cigarette 08/16/24 12:57 e-Cigarette/Vaping Use Never Used 08/16/24 12:57 Are you ready to quit: Yes Tobacco cessation counseling provided: Yes Items discussed: Other Relapse Prevention: discussed the importance of a supportive environment, discussed extending NRT, discussed negative mood or depression after quitting, weight gain after smoking is common and discussed dietary, exercise and/or lifestyle changes Number of minutes spent counselin CPT code: 95758 - 4-10 Minutes Depression Screening Interpretation: Negative Thrive Assessment: Date of Thrive Assessment Date Thrive assessed 08/16/24 08/16/24 12:57 Advance Care Planning discussion: Declined forms (blank form provided w/ education) Date of discussion: 08/12/23 Who was present: self Forms completed: None Time spent: 1-15 minutes, not on file Actual minutes spent: 4 Did not discuss due to Cultural/Spiritual beliefs: Yes Const Other: General: Well developed, well nourished, in no acute distress. Appears stated age. Head: Normocephalic, atraumatic. Eyes: Pupils are equal, round and reactive to light and accommodation. Conjunctivae are clear. Vision grossly normal. Ears: TMs clear AU, EACS WNL Nose: Patent, without discharge. Mouth: There are no ulcers or lesions noted. No inflammation, no post nasal drip, no plaques nor exudates. Neck: Supple, no adenopathy or thyromegaly. Lungs: Clear to auscultation bilaterally. No rales, rhonchi or wheeze noted. Good air flow in all welsh. Heart: Regular rate and rhythm. No murmurs, click, rubs or gallops are noted. Abdomen: Bowel sounds present in all quadrants. The abdomen is soft, nontender, with no masses or organomegaly noted. No hernias are noted. Musculoskeletal: Joints are nontender, without swelling, redness, or effusions. Range of motion is observed to be normal. Pulses: Peripheral pulses are equal and palpable bilaterally. Extremities: No clubbing, cyanosis nor edema is noted. Lipoma left lower quadrant Neurologic: Gait and station normal. Cranial Nerves 2-12 intact. Motor strength grossly symmetrical and intact. No sensory loss. Balance normal. Skin: No rashes, ulcers, or lesions noted. Turgor is good. Skin color is good. Hair and nails are without abnormalities. Psych: Normal eye contact, affect and mood appropriate, and normal interactions. Patient is alert and appropriate to context. Quiet and soft spoken Coding Level of Care Code Est Pt Prev Care 18-39y(85167) Diagnoses Normal physical exam Z00.00 Delusional disorder F22 KIRA (generalized anxiety disorder) F41.1 Moderate mixed hyperlipidemia not requiring statin therapy E78.2 Hyperlipidemia type: moderate mixed hyperlipidemia not requiring statin therapy Lipoma of abdominal wall D17.1 PTSD (post-traumatic stress disorder) F43.10 Tobacco use Z72.0 Influenza vaccination declined Z28.21 Laboratory exam ordered as part of routine general medical examination Z00.00 Other complication of skin graft T86.828 Transplant complication type: other Additional Codes KIRA-7 Assessment Billing - KIRA-7 Assessment Tool: KIRA-7 Assessment 85360 ([id number]) PHQ-9 - 42789 - PHQ-9 Billing: Yes ([id number]) Vital Signs *Quality* - CPT code: 69013 - 4-10 Minutes ([id number]) Vital Signs *Quality* - Advance Care Planning discussion: Declined forms ([id number]) Vital Signs *Quality* - Time spent: 1-15 minutes, not on file ([id number]) Vital Signs *Quality* - Did not discuss due to Cultural/Spiritual beliefs: Yes ([id number]) Assessment & Plan Assessment & Plan (1) Normal physical exam: Code(s): Z00.00 - Encounter for general adult medical examination without abnormal findings Category: Medical (2) Delusional disorder: Comment: Managed by out side prescriber and counselor currently maintained on Seroquel Code(s): F22 - Delusional disorders Category: Medical (3) KIRA (generalized anxiety disorder): Comment: Managed by out side prescriber and counselor currently maintained on Seroquel Code(s): F41.1 - Generalized anxiety disorder Category: Medical (4) Hyperlipidemia: Code(s): E78.5 - Hyperlipidemia, unspecified Category: Medical Qualifiers: Hyperlipidemia type: moderate mixed hyperlipidemia not requiring statin therapy Qualified Code(s): E78.2 - Mixed hyperlipidemia (5) Lipoma of abdominal wall: Comment: Left lower quadrant present for 3 years offered and declined referral to General surgery. Advised to keep an eye on this and if it becomes painful or grows larger consider consult at that time Code(s): D17.1 - Benign lipomatous neoplasm of skin and subcutaneous tissue of trunk Category: Medical (6) PTSD (post-traumatic stress disorder): Comment: Managed by out side prescriber and counselor currently maintained on Seroquel Code(s): F43.10 - Post-traumatic stress disorder, unspecified Category: Medical (7) Tobacco use: Comment: Education provided [facility] Code(s): Z72.0 - Tobacco use Category: Social Hx (8) Influenza vaccination declined: Code(s): Z28.21 - Immunization not carried out because of patient refusal (9) Laboratory exam ordered as part of routine general medical examination: Code(s): Z00.00 - Encounter for general adult medical examination without abnormal findings Category: Medical (10) Unspecified complication of skin graft (allograft) (autograft): Code(s): T86.829 - Unspecified complication of skin graft (allograft) (autograft) Category: Medical Qualifiers: Transplant complication type: other Qualified Code(s): T86.828 - Other complications of skin graft (allograft) (autograft) Plan . Orders: Orders Comprehensive Met. Panel Today Z00.00 - Encounter for general adult medical examination without abnormal findings Hemoglobin A1c Today Z00.00 - Encounter for general adult medical examination without abnormal findings Lipid Panel Today Z00.00 - Encounter for general adult medical examination without abnormal findings Microalbumin, Random (w Creat) Today Z00.00 - Encounter for general adult medical examination without abnormal findings Referrals Plastic Surgery Referral T86.829 - Unspecified complication of skin graft (allograft) (autograft) Medications: New varenicline tartrate (Chantix Starting Month Box) PO PER PKG DIR 53 ea 0RF Patient Instructions: Health screenings for men You should visit your health care provider regularly, even if you feel healthy. The purpose of these visits is to: Screen for medical issues Assess your risk for future medical problems Encourage a healthy lifestyle Update vaccinations and other preventive care services Help you get to know your provider in case of an illness Information Even if you feel fine, you should still see your provider for regular checkups. These visits can help you avoid problems in the future. For example, the only way to find out if you have high blood pressure is to have it checked regularly. High blood sugar and high cholesterol level also may not have any symptoms in the early stages. Simple blood tests can check for these conditions. There are specific times when you should see your provider or receive specific health screenings. The [place] Preventive Services Task Force publishes a list of recommended screenings. Below are screening guidelines for men ages 40 to 64. BLOOD PRESSURE SCREENING Have your blood pressure checked at least once every year. Watch for blood pressure screenings in your area. Ask your provider if you can stop in to have your blood pressure checked. Ask your provider if you need your blood pressure checked more often if: You have diabetes, heart disease, kidney problems, or are overweight or have certain other health conditions You have a first-degree relative with high blood pressure You are Black Your blood pressure top number is from 120 to 129 mm Hg, or the bottom number is from 70 to 79 mm Hg If the top number is 130 mm Hg or greater or the bottom number is 80 mm Hg or greater, this is considered stage 1 hypertension. Schedule an appointment with your provider to learn how you can lower your blood pressure. Effects of age on blood pressure CHOLESTEROL SCREENING Cholesterol screening should begin at age 35 for men with no known risk factors for coronary heart disease. Repeat cholesterol screening should take place: Every 5 years for men with normal cholesterol levels More often if changes occur in lifestyle (including weight gain and diet) More often if you have diabetes, heart disease, kidney problems, or certain other conditions COLORECTAL CANCER SCREENING If you are under age 45, talk to your provider about getting screened. You may need to be screened if you have a strong family history of colon cancer or polyps. Screening may also be considered if you have risk factors such as a history of inflammatory bowel disease or polyps. If you are age 45 to 75, you should be screened for colorectal cancer. There are several screening tests available: A stool-based fecal occult blood (gFOBT) or fecal immunochemical test (FIT) every year A stool sDNA test every 1 to 3 years Flexible sigmoidoscopy every 5 years or every 10 years with stool testing FIT done every year CT colonography (virtual colonoscopy) every 5 years Colonoscopy every 10 years You may need a colonoscopy more often if you have risk factors for colorectal cancer, such as: Ulcerative colitis A personal or family history of colorectal cancer A history of growths in your colon called adenomatous polyps DENTAL EXAM Go to the dentist once or twice every year for an exam and cleaning. Your dentist will evaluate if you have a need for more frequent visits. DIABETES SCREENING All adults who do not have risk factors for diabetes should be screened starting at age 35 and repeated every 3 years. If you have other risk factors for diabetes, such as a first degree relative with diabetes, overweight or obesity, high blood pressure, prediabetes, or a history of heart disease, you may be tested more often. If you are overweight and have other risk factors, such as high blood pressure and are planning to become , screening is recommended. EYE EXAM Have an eye exam every 2 to 4 years ages 40 to 54 and every 1 to 3 years ages 55 to 64. Your provider may recommend more frequent eye exams if you have vision problems or glaucoma risk. Have an eye exam that includes an examination of your retina (back of your eye) at least every year if you have diabetes. IMMUNIZATIONS Commonly needed vaccines include: Flu shot: get one every year COVID-19 vaccine: ask your provider what is best for you Tetanus-diphtheria and acellular pertussis (Tdap) vaccine: have as one of your tetanus-diphtheria vaccines if you did not receive it as an adolescent Tetanus-diphtheria: have a booster (or Tdap) every 10 years Varicella vaccine: receive 2 doses if you never had chickenpox or the varicella vaccine and were born in 1980 or after Hepatitis B vaccine: receive 2, 3, or 4 doses, depending on your exact circumstances, if you did not receive these as a child or adolescent, until age 59 Shingles (herpes zoster) vaccine: at or after age 50 Ask your provider if you should receive other immunizations, especially if you have certain medical conditions, such as diabetes or are at increased risk for some diseases such as pneumonia. INFECTIOUS DISEASE SCREENING Screening for hepatitis C: all adults ages 18 to 79 should get a one-time test for hepatitis C. Screening for human immunodeficiency virus (HIV): all people ages 15 to 65 should get a one-time test for HIV. Depending on your lifestyle and medical history, you may need to be screened for infections such as syphilis, chlamydia, and other infections. LUNG CANCER SCREENING You should have an annual screening for lung cancer with low-dose computed tomography (LDCT) if: You are age 50 to 80 years AND You have a 20 pack-year smoking history AND You currently smoke or have quit within the past 15 years OSTEOPOROSIS SCREENING If you are age 50 to 64 and have risk factors for osteoporosis, you should discuss screening with your provider. Risk factors can include long-term steroid use, low body weight, smoking, heavy alcohol use, having a fracture after age 50, or a family history of hip fracture or osteoporosis. Osteoporosis PHYSICAL EXAM All adults should visit their provider from time to time, even if they are healthy. The purpose of these visits is to: Screen for diseases Assess risk of future medical problems Encourage a healthy lifestyle Update vaccinations and other preventive care services Maintain a relationship with a provider in case of an illness Your height, weight, and body mass index (BMI) should be checked at every exam. During your exam, your provider may ask you about: Depression and anxiety Diet and exercise Alcohol and tobacco use Safety, such as use of seat belts and smoke detectors Your medicines and risk for interactions PROSTATE CANCER SCREENING If you're 55 through 69 years old, before having the test, talk to your provider about the pros and cons of having a PSA test. Ask about: Whether screening decreases your chance of dying from prostate cancer. Whether there is any harm from prostate cancer screening, such as side effects from testing or overtreatment of cancer when discovered. Whether you have a higher risk of prostate cancer than others. If you are age 55 or younger, screening is not generally recommended. You should talk with your provider about if you have a higher risk for prostate cancer. Risk factors include: Having a family history of prostate cancer (especially a brother or father) Being If you choose to be tested, the PSA blood test is repeated over time (yearly or less often), though the best frequency is not known. Prostate examinations are no longer routinely done on men with no symptoms. Prostate cancer SKIN EXAM Your provider may check your skin for signs of skin cancer, especially if you're at high risk. People at high risk include those who have had skin cancer before, have close relatives with skin cancer, or have a weakened immune system. TESTICULAR EXAM The [place] Preventive Services Task Force (USPSTF) now recommends against performing testicular self-exams. Doing testicular self-exams has been shown to have little to no benefit.
[2024-08-16 13:00] VITALS: BP 98/66; PULSE 74; RESP 12; TEMP 36; O2SAT 96; BMI 21.8
--- OUTSIDE RECORDS SUMMARY | 2024-08-16 14:29 | XMS_ITS | Encounter Summary ---
Author Name [facility] Address [address] [place] [id number] Care Team Providers Care Bleach Boiler Packer Name Role Phone RENETTA WES Primary Care Provider Unavailabl e Selected Encounter This section includes the information on record at [place] for the Encounter. Date/Time Encounter Type Encounter Description Reason Provider Source Aug 05, 2024 01:52 PM PH1 ASSMT&MGMT NQHP 5-10 TELEPHONE/HUD-VAS H ICD-10-CM Z59.811 Housing instability, housed, with risk of homelessness NEHEMIAH MAR Encounter Template Text not used by [place] Assessments - Encounter Diagnoses This section includes the primary and secondary diagnoses documented for the Encounter. Date/Time Primary/Secondary Diagnosis Diagnosis Name Provider Source Aug 05, 2024 01:52 PM PRIMARY Housing instability, housed, with risk of homelessness NEHEMIAH MCCLAIN Social History: Smoking Status (Most current) and Tobacco Use (All prior to encounter date) This section includes the most current, and the historical, smoking and tobacco- related health factors from the [place] facility where the Encounter took place. Current Smoking Status This section includes the most current smoking, or tobacco-related health factor, from the [place] facility where the Encounter took place. Date/Time Current Smoking Status Comment Neil martínez Jul 07, 2024 11:00 AM VA-TOBACCO SCREEN FOLLOW-UP [place] Tobacco Use History This section includes a history of the smoking, or tobacco-related health factors, that were collected on or before the date of the Encounter. The data comes from the [place] facility where the Encounter took place. Date/Time Smoking Status/Tobacco Use Comment F danny Jul 07, 2024 11:00 AM VA-TOBACCO USE ADVICE [place] Jul 07, 2024 11:00 AM VA-TOBACCO USE CARDIOGRAPHER NO [place] Jul 07, 2024 11:00 AM VA-TOBACCO USE MED NO [place] Jun 23, 2024 02:03 PM VA-TOBACCO NEVER USED OTHER TYPE [place] Jun 23, 2024 02:03 PM VA-TOBACCO USE EVERY DAY CIGAR[facility] SOPHIA NAE[facility] Advance Directives: All historical and current Section Date Range: From patient's date of to the date document was created. This section includes ALL of a patient's completed or amended [facility] Advance and Rescinded Directives. The entries below indicate that a directive exists for the patient, but an actual copy is not included with this document. The data comes from all [place] facilities. Date Advance Directives Provider Source Jun 23, 2024 ADVANCE DIRECTIVE DISCUSSION NEHEMIAH RIVERA Encounter Notes: All associated encounter notes This section contains the clinical notes associated to the Encounter. Date/Time Encounter Note(s) Provider Source Aug 05, 2024 01:52 PM TELEPHONE ENCOUNTE R NOTE: LOCAL TITLE: HOMELESS TELEPHONE CONTACT STANDARD TITLE: TELEPHONE ENCOUNTER NOTE DATE OF NOTE: AUG 05, 2024@13:52 ENTRY DATE: AUG 06, 2024@13:52:50 AUTHOR: WILLIAM BAILEY EXP COSIGNER: URGENCY: STATUS: COMPLETED HOMELESS TELEPHONE CONTACT Patient identification verifiers used:Full Name, Duration: 5 minutes Reason for Contact: Outreach Diagnoses: Homelessness [place] called SW to explore status. Asked questions about how he can proceed if he finds an apartment. SW explained the process. [place] expressed understanding. /alessandro/ HUMZA ESTEBAN WAFER POLISHER Signed: 08/06/2024 13:55 NEHEMIAH BAILEY
--- OUTSIDE RECORDS SUMMARY | 2024-08-16 14:30 | XMS_ITS | Continuity of Care Document ---
Author Name [facility] Organization [facility] Care Team Providers Care Shade Hanger Name Role Phone [facility] Unavailable Unavailable Problems Combined list of problems from Department of Defense and Veterans Affairs facilities. It does not include entries that were removed or entered in error. Problem Status Onset Date Problem Type Date of Resolution Comments Source Anxiety disorder Active Condition [facility] Cigarette smoker Active Condition Jul 07, 2024 Entered By: WES JACKSON Comment: Started age 16 [place] NonVA Providers Active Condition Jul 07, 2024 Entered By: WES JACKSON Comment: [facility] Entered By: WES JACKSON Comment: Psychiatrist and Therapist: [facility] Massimo [place] trapezius muscle strain right Inactive Condition [facility] visit for: examination of subpopulation Active Condition DoD visit for: administrative purpose Inactive Condition [facility] acute chest wall trauma Inactive Condition [facility] axis V global assess of functioning (GAF) scale ___ (100-0) Active Condition DoD axis IV problems occupational Active Condition DoD axis IV psychosocial and environmental problems Inactive Condition DoD psychiatric diagnosis or condition deferred on axis III Active Condition DoD psychiatric diagnosis or condition deferred on axis II Active Condition [facility] Observation For Suspected Mental Condition Active Condition [facility] alcohol abuse Active Condition [facility] 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 [facility] Need For Vaccination Pneumococcal Inactive Condition DoD acne Active Condition DoD overuse syndrome Active Condition [facility] visit for: ears / hearing exam Active Condition [facility] visit for: occupational health / fitness exam Active Condition DoD visit for: screening mental / developmental disorders Inactive Condition DoD costochondritis (Tietze's syndrome) Active Condition DoD chest pain or discomfort Active Condition DoD pain in leg lower Active Condition DoD foot pain (soft tissue) Active Condition DoD leg strain popliteus Active Condition [facility] visit for: services physical Active Condition DoD visit for: screening exam pulmonary tuberculosis Active Condition DoD Diagnosis: ICD-10-CM Z59.811 Housing instability, housed, with risk of homelessness Active Diagnosis [facility] Diagnosis: ICD-10-CM F17.210 Nicotine dependence, cigarettes, uncomplicated Active Diagnosis [place] Diagnosis: ICD-10-CM Z59.00 Homelessness unspecified Active Diagnosis [place] Medications Combined list of outpatient medications from Department of Defense and Veterans Affairs facilities.Medications provided include 1) outpatient medications from the last 15 months, and 2) patient-reported medications. Medication Details Route Status Patient Instructions Prescription Expires Prescription Number Last Dispense Date Ordering Provider Order Date Order Qty Source QUETIAPINE FUMARATE 100MG TAB TAKE ONE TABLET BY MOUTH ONCE DAILY ORAL ACTIVE GOPI JACKSON SA 2024 [facility] Allergies, Adverse Reactions, Alerts Combined list of allergies from Department of Defense and Veterans Affairs facilities. It does not include entries that were removed or entered in error. Substance Category Reaction Severity Reaction type Status Date Reported Comments Source No Known Allergies Drug allergy (disorder) active 07/21/2008 [facility] Immunizations Combined list of available immunizations from the Department of Defense and Veterans Affairs facilities. Immunization Series Date Given Administered By Site Reaction Lot Number CVX Code Drug Marine Steward Status Comments Source Influenza, seasonal, injectable 0 2011 141 Sanofi Pasteur (PMC) complet ed Influenza , seasonal, injectabl e DoD influenza virus vaccine, split virus (incl. purified surface antigen)-reti red CODE 1 2009 [id number] [employer] (CS) complet ed influenza virus vaccine, split virus (incl. purified surface antigen)- retired CODE DoD pneumococcal polysaccharid e vaccine, 23 valent 1 2009 SHRUTHI BORGES [id number] 33 Merck (MSD) complet ed pneumococ nevaeh polysacch aride vaccine, 23 valent DoD Novel influenza-H1N 1-09, injectable 1 2009 [id number] 127 Unknown (UNK) complet ed Novel influenza -A0A3-63, injectabl e DoD influenza virus vaccine, live, attenuated, for intranasal use 1 2008 UNK 111 Unknown (UNK) comple t ed influenza virus vaccine, live, attenuate d, for intranasa l use DoD hepatitis A vaccine, adult dosage 2 2008 [id number] 52 Unknown (UNK) complet ed hepatitis A vaccine, adult dosage DoD measles, mumps and rubella virus vaccine 1 2008 UNK 03 Unknown (UNK) Not Given measles, mumps and rubella virus vaccine DoD poliovirus vaccine, inactivated 1 2008 [id number] 10 Sanofi Pasteur (PMC) complet ed polioviru s vaccine, inactivat ed DoD influenza virus vaccine, split virus (incl. purified surface antigen)-reti red CODE 1 2008 [id number] 15 CS [employer] (CS) complet ed influenza virus vaccine, split virus (incl. purified surface antigen)- retired CODE DoD varicella virus vaccine 1 2008 UNK 21 Unknown (UNK) Not Given varicella virus vaccine DoD hepatitis B vaccine, adult dosage 1 2008 UNK 43 Unknown (UNK) Not Given hepatitis B vaccine, adult dosage DoD hepatitis A vaccine, adult dosage 1 2008 [id number] 52 [employer]Sw[employer]Spinine (SKB) complet ed hepatitis A vaccine, adult dosage DoD meningococcal polysaccharid e (groups A, C, Y and W-135) diphtheria toxoid conjugate vaccine (MCV4P) 1 2008 [id number] 114 Sanofi Pasteur (PMC) complet ed meningoco ccal polysacch aride (groups A, C, Y and W-135) diphtheri a toxoid conjugate vaccine (MCV4P) DoD tetanus toxoid, reduced diphtheria toxoid, and acellular pertu is vaccine, adsorbed 1 2008 [id number] 115 Sanofi Pasteur (PMC) complet ed tetanus toxoid, reduced diphtheri a toxoid, and acellular pertussis vaccine, adsorbed DoD Vital Signs Combined list of inpatient and outpatient Vital Signs from Department of Defense and Veterans Affairs, ranging from 12 months to all on record, depending upon the facility. Vital Sign Value Date Comments Source SYSTOLIC BLOOD PRESSURE 117 07/07/19 25 11:21:17 [facility] [facility] DIASTOLIC BLOOD PRESSURE 75 025 11:21:17 [facility] [place] [facility] PULSE OXIMETRY 98 07/07/2024 11:21:17 [facility] [place] [facility] WEIGHT 140.4 07/07/2024 11:21:17 [facility] [place] [facility] BMI 22 kg/m2 07/07/2024 11:21:17 [facility] PAIN 0 07/07/2024 11:21:17 [facility] HEIGHT 67 07/07/2024 11:21:17 [facility] TEMPERATURE 97.8 07/07/2024 11:21:17 [facility] PULSE 90 07/07/2024 11:21:17 [facility] RESPIRATION 16 07/07/2024 11:21:17 [facility] Encounters Combined list of: 1) Encounters from Department of Veterans Affairs facilities going backup to the last 18 months, not all VA inpatient encounters are included; 2) Encounters from the Department of Defense facilities going backup to 280 months. Location Location Details Encounter Type Encounter Number Reason For Visit Attending Provider ADM Date DC Date Status Disposition Source [facility](KAYLEN C Post Immunizat ion) OUTPATIENT [id number] IET PPD JEREMY CALL 07/21 Released w/o Limitations [employer]([facility] Post Immuniz ation) [facility](PES Optometry -Trainee) OUTPATIENT [id number] ANTONIO BRADLEY 07/21 Released w/o Limitations [employer](P ES Optomet ry-Tristin nee) [facility] Athleti Effort [facility]) OUTPATIENT [id number] L/R KNEE LACEY GUNDERSON 09/14 Released with Work/Duty Limitations [facility] 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[facility]) [facility] Ambulator y[place] OUTPATIENT [id number] SELF CARE YISEL FIGUEROA 10/27 Released with Work/Duty Limitations [facility](T [facility] Ambulat ory) [facility] Athleti Effort [facility]) OUTPATIENT [id number] Both Kaye Pain ASHLY HAYNES 12/30 Released w/o Limitations [facility] Athleti Effort [facility]) [employer] [facility] M02A [facility] Red) OUTPATIENT [id number] left side of chest hurt WES KHAN 04/17 Released w/o Limitations [employer] [facility])(AM H M02A [facility] Red) [employer] [facility])(Urge nt-Care-C teodora) OUTPATIENT [id number] DAVID DINO C 06/15 Released w/o Limitations [employer] ([facility])(Ur gent-Ca re-Clin ic) [employer] ([facility])([address] Óscar) OUTPATIENT [id number] left side of chest hurt when breathi ng deeply RADHA, MARYA L 06/15 Released with Work/Duty Limitations [employer] [facility])(AM H 2C [facility] Óscar) [employer] [facility])([facility] - Hearing Con) OUTPATIENT [id number] ANNUAL LINDA KIDD 09/12 Released w/o Limitations [employer] [facility])(Bev el - Hearing Con) [employer] [facility])([facility]2A [facility] Red) OUTPATIENT [id number] leg hurts CARLITO GOEL L 09/19 Released w/o Limitations [employer] [facility])(AM H 2A [facility] Red) [employer] [facility])([facility] Red) OUTPATIENT [id number] referra l (cosmed /surger y) MARIBEL BARBOSA 11/08 Released w/o Limitations [employer] [facility])(AM H 2A [facility] Red) [employer] [facility] Red) OUTPATIENT [id number] REFERRA L TO DERMATO MARIBEL MAZA 12/20 Released w/o Limitations [employer] [facility])(AM H 2A [facility] Red) [employer] [facility])(Urge nt-Care-C linic) OUTPATIENT [id number] SATISH DENNIS 01/17 Released w/o Limitations [employer] ([facility])(Ur gent-Ca re-Clin ic) [employer] [facility])(Derm atology) OUTPATIENT [id number] ACNE MONIQUE GUERRERO 01/18 Released w/o Limitations [employer] [facility])(De rmatolo gy) [employer] [facility])([facility] Red) OUTPATIENT [id number] SAAD Kumar 04/24 Released w/o Limitations [employer] [facility])(AM H M02A [facility] Red) [employer] [facility])([facility] M02A [facility] Red) OUTPATIENT [id number] SAAD Kumar 05/07 Released w/o Limitations [employer] [facility])(AM H M02A [facility] Red) [employer] [facility])(Opto metry - Primo) OUTPATIENT [id number] eye exam GRAYSON GORMAN 09/14 Released w/o Limitations [employer] [facility])(Op tometry - Primo) [employer] [facility])([facility] M02C [facility] Óscar) OUTPATIENT [id number] neck pain x2days SAEED MENEZES 10/24 Released with Work/Duty Limitations [employer] [facility])(AM H M02C [facility] Óscar) [employer] [facility])(Phys Exam) OUTPATIENT [id number] DAQUAN TRUJILLO 12/13 Released w/o Limitations [employer] ([facility])(Ph ys Exam) [facility] Outpatient Encounter [id number] 06/07 [facility] Outpatient Encounter [id number] 06/15 [facility] PROGRAM INTAKE ASSESSMENT [id number] Diagnos is: ICD-10- CM Z59.00 Homeles sness unspeci fied BRADEN BUSTAMANTE,06/23 [place] [facility] Outpatient Encounter [id number] BRADEN BUSTAMANTE,06/23 [facility] [place] [facility] Outpatient Encounter [id number] 07/05 [facility] [place] OFFICE O/P NEW LOW 30 MIN [id number] 1BY. 04 Diagnos is: ICD-10- CM F17.210 Nicotin e depende nce, cigaret ryan, uncompl icated MCKENZIE JACKSON 07/07 [facility]ELD [place] PH1 ASSMT&MGMT NQHP 5-10 [id number] Diagnos is: ICD-10- CM Z59.811 Housing instadeola lity, housed, with risk of homeles richy BUSTAMANTE,MAR [place] 08/05 [facility] Procedures Combined list of: 1) Procedures from Department of Veterans Affairs facilities going back up to thelast 18 months, not all VA non-surgical procedures are included; 2) All procedures from the Department of Defense facilities. Procedure Procedure Type Code Date Perfomer Comments Sourc e THERAPEUTIC PROCEDURE, 1 OR MORE AREAS, EACH 15 MINUTES; THERAPEUTIC EXERCISES TO DEVELOP STRENGTH AND ENDURANCE, RANGE OF MOTION AND FLEXIBILITY 009 [facility] ATHLETIC TRAINING EVALUATION 009 [facility] VIS FUNCT SCREEN,AUTOMAT/SEMI -AUTOMAT BILAT QUANT DETERM VISUAL ACUITY,OCULAR ALIGN,COLOR VISION,PSEUDOISOCHR OMAT PLATES,& FIELD VIS (MAY INC ALL/SOME SCRN DETERM FOR CONTRAST SENSITIV,VIS UND GLARE) 009 [facility] SKIN TEST; TUBERCULOSIS, INTRADERMAL [facility] INTERPRETATION OR EXPLANATION OF RESULTS OF PSYCHIATRIC, OTH MEDICAL EXAMS/PROCEDURES, OR OTH ACCUMULATED DATA TO FAMILY OR OTH RESPONSIBLE PERSONS,OR ADVISING THEM HOW TO ASSIST PATIENT 011 [facility] INDIVIDUAL PSYCHOTHERAPY, INSIGHT ORIENTED, BEHAVIOR MODIFYING AND/OR SUPPORTIVE, IN AN OFFICE OR OUTPATIENT FACILITY, APPROXIMATELY 20 TO 30 MINUTES [id number] WITH THE PATIENT [facility] DETERMINATION OF VENOUS PRESSURE 011 [facility] TELE ASSESS & MGT SRV PROV QUAL NONPHYS HLTH CARE PRO TO EST PAT,PARENT,GUARD NOT ORIG REL ASSESS & MGT SRV PROV W/IN PREV 7 DAYS NOR LEAD ASSESS & MGT SRV/PX W/IN NXT 24 HR/SOON APT;5-10 MIN MED DIS 011 [facility] INDIVIDUAL PSYCHOTHERAPY, INSIGHT ORIENTED, BEHAVIOR MODIFYING AND/OR SUPPORTIVE, IN AN OFFICE OR OUTPATIENT FACILITY, APPROXIMATELY 20 TO 30 MINUTES [id number] WITH THE PATIENT [facility] INDIVIDUAL PSYCHOTHERAPY, INSIGHT ORIENTED, BEHAVIOR MODIFYING AND/OR SUPPORTIVE, IN AN OFFICE OR OUTPATIENT FACILITY, APPROXIMATELY 20 TO 30 MINUTES [id number] WITH THE PATIENT [facility] INDIVIDUAL PSYCHOTHERAPY, INSIGHT ORIENTED, BEHAVIOR MODIFYING AND/OR SUPPORTIVE, IN AN OFFICE OR OUTPATIENT FACILITY, APPROXIMATELY 20 TO 30 MINUTES [id number] WITH THE PATIENT [facility] DETERMINATION OF REFRACTIVE STATE [facility] INTERPRETATION OR EXPLANATION OF RESULTS OF PSYCHIATRIC, OTH MEDICAL EXAMS/PROCEDURES, OR OTH ACCUMULATED DATA TO FAMILY OR OTH RESPONSIBLE PERSONS,OR ADVISING THEM HOW TO ASSIST PATIENT [facility] PSYCHIATRIC DIAGNOSTIC INTERVIEW EXAMINATION [facility] INDIVIDUAL PSYCHOTHERAPY, INSIGHT ORIENTED, BEHAVIOR MODIFYING AND/OR SUPPORTIVE, IN AN OFFICE OR OUTPATIENT FACILITY, APPROXIMATELY 20 TO 30 MINUTES [id number] WITH THE PATIENT [facility] SCREENING TEST OF VISUAL ACUITY, QUANTITATIVE, BILATERAL [facility] PSYCHIATRIC DIAGNOSTIC INTERVIEW EXAMINATION [facility] PHARMACOLOGIC MANAGEMENT, INCLUDING PRESCRIPTION, USE, AND REVIEW OF MEDICATION WITH NO MORE THAN MINIMAL MEDICAL PSYCHOTHERAPY [facility] PNEUMOCOCCAL POLYSACCHARIDE VACCINE, 23-VALENT (PPSV23), ADULT OR IMMUNOSUPPRESSED PATIENT DOSAGE, WHEN ADMINISTERED TO INDIVIDUALS 2 YEARS OR OLDER, FOR SUBCUTANEOUS OR INTRAMUSCULAR USE [facility] PURE TONE AUDIOMETRY (THRESHOLD); AIR ONLY [facility] INJECTION, KETOROLAC TROMETHAMINE, PER 15 MG [facility] INFLUENZA VIRUS VACCINE, TRIVALENT, LIVE (LAIV3), FOR INTRANASAL USE [facility] SCREENING TEST OF VISUAL ACUITY, QUANTITATIVE, BILATERAL [facility] Psychiatric Therapy Counseling Family / Guardians Psychiatric Therapy Counseling Family / Guardians [id number] TAI LANDON [facility] Psychotherapy Individual Approximately 30 Minutes Psychotherapy Individual Approximately 30 Minutes [id number] TAI LANDON [facility] Venous Pre ure Venous Pressure [id number] DAQUAN MUNIZ [facility] Audiogram (Screening) Audiogram (Screening) 29236 DAQUAN MUNIZ [facility] Screening Test Of Visual Acuity, Quantitative, Bilateral Screening Test Of Visual Acuity, Quantitative, Bilateral [id number] DAQUAN MUNIZ [facility] Non-Physician Phone Call To Patient/Provider Brief (5-10min) Non-Physician Phone Call To Patient/Provider Brief (5-10min) [phone] DIPESH TAI Crowe [facility] Psychotherapy Individual Approximately 30 Minutes Psychotherapy Individual Approximately 30 Minutes [id number] LANDONTAI [facility] Psychotherapy Individual Approximately 30 Minutes Psychotherapy Individual Approximately 30 Minutes [id number] JALEN DENNIS [facility] Psychotherapy Individual Approximately 30 Minutes Psychotherapy Individual Approximately 30 Minutes [id number] JALEN DENNIS [facility] Determination Of Refractive State Determination Of Refractive State [phone] GRAYSON GORMAN no spec Rx given or indicated. [facility] Ophthalmological New Patient Start Comprehensive Care Ophthalmological New Patient Start Comprehensive Care [id number] GRAYSON GORMAN [facility] Psychiatric Therapy Counseling Family / Guardians Psychiatric Therapy Counseling Family / Guardians [phone] JALEN DENNIS [facility] Psychiatric Diagnostic Evaluation Comprehensive Examination Psychiatric Diagnostic Evaluation Comprehensive Examination [id number] JALEN DENNIS [facility] Psychotherapy Individual Approximately 30 Minutes Psychotherapy Individual Approximately 30 Minutes [id number] JALEN DENNIS [facility] Screening Test Of Visual Acuity, Quantitative, Bilateral Screening Test Of Visual Acuity, Quantitative, Bilateral [phone] SAAD PAUL [facility] Psychiatric Diagnostic Evaluation Comprehensive Examination Psychiatric Diagnostic Evaluation Comprehensive Examination [id number] JULES ANGEL [facility] Psychotherapy With Medication Management Psychotherapy With Medication Management [id number] CONCHITA BALES [facility] Psychiatric Diagnostic Evaluation Comprehensive Examination Psychiatric Diagnostic Evaluation Comprehensive Examination [id number] CONCHITA BALES [facility] Pneumococcal Polysaccharide Vaccine (Age 2Y+) Pneumococcal Polysaccharide Vaccine (Age 2Y+) [id number] 010 KHADIJAH KUMAR Pneumovax 0.5 ml given IM left deltoid. VIS given to patient. [facility] Immunization Administration By Injection, One Vaccine Immunization Administration By Injection, One Vaccine 16416 010 KHADIJAH KUMAR Patient instructed to remain in the clinic for 20 minutes after immunizations to observe for adverse reactions. Patient verbalized understanding. [facility] Threshold Audiogram (Pure Tone) Threshold Audiogram (Pure Tone) 47025 010 LINDA KIDD [facility] Physician Supervised Group Educational Services 010 LINDA KIDD [facility] A isted Exercises For ROM Assisted Exercises For ROM [id number] 009 ASHLY HAYNES [facility] Athletic Training Evaluation Athletic Training Evaluation 30391 [id number] ASHLY HAYNES [facility] Athletic Training Evaluation Athletic Training Evaluation [id number] 009 LACEY GUNDERSON [facility] Visual Function Screening Visual Function Screening 53120 ANTONIO BRADLEY [facility] Skin Test Anergy Tuberculin Intradermal Skin Test Anergy Tuberculin Intradermal [id number] JEREMY CALL [facility] Social History Combined list of available smoking, tobacco, and other social history from Department of Defense and Veterans Affairs facilities. Social History Type Response Date Comment Sourc e Tobacco smoking status NHIS [facility] of [facility] use VA-TOBACCO USE ADVICE 07/07/2024 [place] History of tobacco use VA-TOBACCO USE EV CHYNA DAY CIGARETTES 06/23/2024 [place] This section is an empty social history section. [facility] Advance Directives List of completed, amended, or rescinded Advance Directives on record at Department of Veterans Affairs facilities. An actual copy of the Directive is not included. Date Advance Directive Provider Source 06/23/2024 ADVANCE DIRECTIVE DISCUSSION NEHEMIAH RIVERA
== END 2024-08-16 13:33 | disposition home or self-care (01) ==
PROVIDERS: PCP Nurse Practitioner Family; Visit Provider Nurse Practitioner Family
DX: Z00.00 Encounter for general adult medical examination without abnormal findings (principal); F22 Delusional disorders; F41.1 Generalized anxiety disorder; E78.2 Mixed hyperlipidemia; D17.1 Benign lipomatous neoplasm of skin and subcutaneous tissue of trunk; F43.10 Post-traumatic stress disorder, unspecified; Z72.0 Tobacco use; Z28.21 Immunization not carried out because of patient refusal; T86.828 Other complications of skin graft (allograft) (autograft)

== ENCOUNTER → 2024-08-16 12:56 | Outpatient (BNVA) | payer OTHER, SELFPAY | PROVIDERS: PCP Nurse Practitioner Family; Visit Provider Nurse Practitioner Family ==

== ENCOUNTER 2024-08-16 13:24 | Outpatient (REF) | payer OTHER, SELFPAY ==
--- OUTSIDE RECORDS SUMMARY | 2024-08-16 15:08 | XMS_ITS | Clinical Summary ---
Author Organization [facility] Address [address] [place] [phone] Phone Care Team Providers Care Clinical Assoc Name Role Phone Anitha Hernandez MD Primary Care Provider Unavailabl e Immunizations Immunization Administration Dates Next Due DTP 01/06/1999, 9,08/06/1998,1992,09/06/1989 Hep B, ped/adol 03/27/2000,11/30/1999,09/18/1999 Hib (HbOC) 12/06/1989 IPV 10/06/1998, 9,10/06/1992,1989 MMR 09/18/1999,09/06/1989 Td (adult) (MBL), 2 Lf tetan us toxoid, PF, adsorbed 09/18/1999 Social History Tobacco Use Types Packs/Day Years Used Date Smoking Tobacco: Never Assessed Sex and Gender Information Value Date Recorded Sex Assigned at Not on file Legal Sex Male 4:25 PM EDT Gender Identity Not on file Sexual Orientation Not on file Plan of Treatment Health Maintenance Due Date Last Done Comments Varicella Vaccines (1 of 2 - 13+ 2-dose series) 2001 DTaP,Tdap,and Td Vaccines (7 - Tdap) 09/17/2009 09/18/1999, 01/06/1999, 10/06/1998, Additional history exists Influenza Vaccines (#1) 2024 COVID-19 Vaccine ( season) 2024 HIB Vaccines Completed 12/06/1989 IPV Vaccines Completed 10/06/1998, 07/11, 10/06/1992, Additional history exists MMR Vaccines Completed 09/18/1999, 09/06/1989 Hepatitis B Vaccines Completed 03/27/2000, 11/30/1999, 09/18/1999 HPV Vaccines Aged Out No longer eligi ble based on patient's age to complete this topic Hepatitis A Vaccines Aged Out No long er eligible based on patient's age to complete this topic Men B Vaccine Aged Out No longer elig ible based on patient's age to complete this topic Meningococcal Vaccine Aged Out No bozena yessi eligible based on patient's age to complete this topic Pneumococcal Vaccine Aged Out No long er eligible based on patient's age to complete this topic Care Teams Clinical Assoc Relationship Specialty Start Date End Date Anitha Hernandez MD PCP - General 01/17/17
--- OUTSIDE RECORDS SUMMARY | 2024-08-16 15:08 | XMS_ITS | Encounter Summary ---
Author Organization [facility] Address [address] [place] [id number] Phone Care Team Providers Care Roll Table Operator Name Role Phone Anitha Hernandez MD Primary Care Provider Unavailabl e Encounter Details Date Type Department Care Team (Late st Contact Info) Description 01/23/2017 Conversion Encounter [facility] - [address] [address] Social History Tobacco Use Types Packs/Day Years Used Date Smoking Tobacco: Never Assessed Sex and Gender Information Value Date Recorded Sex Assigned at Not on file Legal Sex Male 4:25 PM EDT Gender Identity Not on file Sexual Orientation Not on file documented as of this encounter Plan of Treatment Not on file documented as of this encounter Visit Diagnoses Not on filedocumented in this encounter Care Teams Roll Table Operator Relationship Specialty Start Date End Date Anitha Hernandez MD PCP - General 01/17/17 documented as of this encounter
[2024-08-16 18:00] LABS: Estimated Average Glucose 103 mg/dL; Hemoglobin A1c % 5.2 % (<6.0); Total Hemoglobin (HGBA1C) 3460.8255 umol/L
[2024-08-16 18:03] LABS: Alanine Aminotransferase 12 U/L (0-40); Albumin Level 3.7 g/dL (3.5-5.0); Alkaline Phosphatase 46 U/L (39-117); Anion Gap 10 (12-20); Aspartate Amino Transferase 30 U/L (5-37); Bilirubin Total 0.3 mg/dL (0.0-1.0); Blood Urea Nitrogen 12 mg/dL (9-16); Calcium 8.4 mg/dL (8.4-10.2); Carbon Dioxide 26 mmol/L (22-29); Chloride 111 mmol/L (96-108); Cholesterol 165 mg/dL (<200); Estimated Glomerular Filt Rate > 60; Glucose Random 93 mg/dL (60-115); HDL Cholesterol 42 mg/dL (>40); LDL Cholesterol Calculated 113 mg/dL (<100); Sodium 143 mmol/L (135-145); Triglycerides 50 mg/dL (<150)
[2024-08-16 18:18] LABS: Creatinine Urine 312.59 mg/dL; Microalbum/Creatinine Ratio Ur 4.1 ug/mg cr (<30)
== END 2024-08-16 13:25 | disposition home or self-care (01) ==
LOC: HO.WFDLDS 13:24
PROVIDERS: Visit Provider Nurse Practitioner Family
DX: Z00.00 Encounter for general adult medical examination without abnormal findings (principal); Z13.1 Encounter for screening for diabetes mellitus; E78.2 Mixed hyperlipidemia; F22 Delusional disorders; F41.1 Generalized anxiety disorder; D17.1 Benign lipomatous neoplasm of skin and subcutaneous tissue of trunk; F43.10 Post-traumatic stress disorder, unspecified; T86.828 Other complications of skin graft (allograft) (autograft); Z72.0 Tobacco use
CPT/HCPCS: 36415; 80053; 80061; 82043; 82570; 83036; 96127